=== PATIENT | female | born 2005 | race Caucasian/White ===

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

== ENCOUNTER 2024-02-14 15:53 | Outpatient (CLI) | payer OTHER | END 2024-02-14 15:54 | disposition home or self-care (01) | LOC: ULT 15:53 | DX: N91.1 Secondary amenorrhea (principal) | CPT/HCPCS: 76856 ==